=== PATIENT | male | born 1965 | race Caucasian/White ===

== ENCOUNTER 2019-07-02 10:06 | Outpatient (REF) | payer MEDICAID, SELFPAY ==
[2019-07-02 21:38] LABS: ALT 35 U/L (16-63); AST 21 U/L (15-37); Albumin 3.9 g/dL (3.4-5.0); Alkaline Phosphatase 81 U/L (46-116); Anion Gap 8.3 mmol/L (3-11); BUN 17 mg/dL (7-18); Bilirubin, Total 0.4 mg/dL (0.2-1.0); CO2 27.7 mmol/L (21.0-32.0); Calculated LDL 162 mg/dL (<100); Chloride 102 mmol/L (98-107); Cholesterol 236 mg/dL (<200); Glucose 88 mg/dL (74-106); HDL Cholesterol 36 mg/dL (40-60); Potassium 4.5 mmol/L (3.5-5.1); Sodium 138 mmol/L (136-145); Total Protein 7.1 g/dL (6.4-8.2); Triglyceride 190 mg/dL (<150)
[2019-07-02 21:39] LABS: Hemoglobin A1C 5.4 % (3.8-5.6)
== END 2019-07-02 10:26 ==
LOC: NCHCN 10:06
PROVIDERS: Visit Provider Nurse Practitioner Family
DX: I10 Essential (primary) hypertension (principal); Z13.1 Encounter for screening for diabetes mellitus; Z13.220 Encounter for screening for lipoid disorders
CPT/HCPCS: 80053; 80061; 83036

== ENCOUNTER 2019-07-20 21:25 | Outpatient (REF) | payer MEDICAID, SELFPAY ==
[2019-07-20 21:58] LABS: ALT 32 U/L (16-63); AST 25 U/L (15-37); Albumin 4.2 g/dL (3.4-5.0); Alkaline Phosphatase 79 U/L (46-116); Anion Gap 6.4 mmol/L (3-11); BUN 12 mg/dL (7-18); Bilirubin, Total 0.6 mg/dL (0.2-1.0); CO2 29.6 mmol/L (21.0-32.0); Chloride 103 mmol/L (98-107); Glucose 79 mg/dL (74-106); Sodium 139 mmol/L (136-145); Total Protein 7.3 g/dL (6.4-8.2)
== END 2019-07-20 21:45 ==
LOC: NCHCN 21:25
PROVIDERS: Visit Provider Nurse Practitioner Family
DX: I10 Essential (primary) hypertension (principal); R10.9 Unspecified abdominal pain
CPT/HCPCS: 80053

== ENCOUNTER 2019-08-07 09:59 | Outpatient (REF) | payer MEDICAID, SELFPAY ==
[2019-08-07 20:58] LABS: Anion Gap 7.7 mmol/L (3-11); BUN 16 mg/dL (7-18); CO2 28.3 mmol/L (21.0-32.0); CREATININE 1.23 mg/dL (0.70-1.30); Calcium 9.3 mg/dL (8.5-10.1); Chloride 101 mmol/L (98-107); Glucose 75 mg/dL (74-106); Potassium 4.4 mmol/L (3.5-5.1); Sodium 137 mmol/L (136-145)
== END 2019-08-07 10:19 ==
LOC: NCHCN 09:59
PROVIDERS: Visit Provider Nurse Practitioner Family
DX: I10 Essential (primary) hypertension (principal)
CPT/HCPCS: 80048

== ENCOUNTER 2020-01-28 08:51 | Outpatient (REF) | payer MEDICAID, SELFPAY ==
[2020-01-28 21:46] LABS: ALT 15 U/L (16-63); AST 13 U/L (15-37); Albumin 4.1 g/dL (3.4-5.0); Alkaline Phosphatase 79 U/L (46-116); Anion Gap 6.4 mmol/L (3-11); BUN 11 mg/dL (7-18); Bilirubin, Total 0.3 mg/dL (0.2-1.0); CO2 27.6 mmol/L (21.0-32.0); CREATININE 1.09 mg/dL (0.70-1.30); Calcium 8.9 mg/dL (8.5-10.1); Calculated LDL 130 mg/dL (<100); Chloride 105 mmol/L (98-107); Cholesterol 187 mg/dL (<200); Glucose 77 mg/dL (74-106); HDL Cholesterol 36 mg/dL (40-60); Potassium 4.4 mmol/L (3.5-5.1); Sodium 139 mmol/L (136-145); Triglyceride 105 mg/dL (<150)
== END 2020-01-28 09:11 ==
LOC: NCHCN 08:51
PROVIDERS: Visit Provider Nurse Practitioner Family
DX: I10 Essential (primary) hypertension (principal); E78.5 Hyperlipidemia, unspecified
CPT/HCPCS: 80053; 80061

== ENCOUNTER 2021-04-20 16:39 | Outpatient (REF) | payer MEDICAID, SELFPAY ==
[2021-04-23 12:00] LABS: HIV-1/2 Ag & Ab Screen Negative (Negative)
[2021-04-23 12:28] LABS: Hepatitis C Ab w Rflx HCV PCR Negative (Negative)
[2021-04-23 13:22] LABS: Syphilis Total Ab w/Reflex Nonreactive (Nonreactive)
[2021-04-24 10:33] LABS: Hepatitis B Surface Ag Negative (Negative)
[2021-04-24 15:26] LABS: Chlamydia Result Negative (Negative); GC Result Negative (Negative)
== END 2021-04-20 16:40 | disposition home or self-care (01) ==
LOC: NCHCN 16:39
PROVIDERS: Visit Provider Nurse Practitioner Family
DX: Z11.4 Encounter for screening for human immunodeficiency virus [HIV] (principal); Z11.3 Encounter for screening for infections with a predominantly sexual mode of transmission; Z11.59 Encounter for screening for other viral diseases
CPT/HCPCS: 86803; 87340; 87389; 87491; 87591; 86780

== ENCOUNTER 2021-05-23 15:09 | Outpatient (REF) | payer MEDICAID, SELFPAY ==
[2021-05-23 21:10] LABS: BUN 18 mg/dL (7-18); CREATININE 1.1 mg/dL (0.70-1.30); Calcium 9.4 mg/dL (8.5-10.1); Calculated LDL 235 mg/dL (<100); Chloride 99 mmol/L (98-107); Cholesterol 320 mg/dL (<200); Glucose 81 mg/dL (74-106); HDL Cholesterol 45 mg/dL (40-60); Potassium 4.7 mmol/L (3.5-5.1); Sodium 139 mmol/L (136-145); Triglyceride 202 mg/dL (<150)
== END 2021-05-23 15:10 | disposition home or self-care (01) ==
LOC: NCHCN 15:09
PROVIDERS: Visit Provider Nurse Practitioner Family
DX: E78.5 Hyperlipidemia, unspecified (principal); I10 Essential (primary) hypertension
CPT/HCPCS: 80048; 80061